=== PATIENT | male | born 1980 | race Caucasian/White ===

== ENCOUNTER 2018-04-09 13:56 | Inpatient (IN) | payer OTHER ==
[2018-04-09] MEDS: SOD CHLORIDE 0.9% 2,000 ML IV (14:26)
[2018-04-09 14:30] LABS: ADD MAN DIFF? NO
[2018-04-09 14:41] LABS: WHITE BLOOD COUNT 13.5 10^3/ul (4.8-10.8)
[2018-04-09 14:41] LABS: BASOPHILS % 0.3 % (0.0-2.0); EOSINOPHILS % 0.1 % (0.0-7.0); HEMATOCRIT 23.6 % (42.0-52.0); HEMOGLOBIN 7.2 g/dl (14.0-18.0); LYMPHOCYTES # 1.5 10^3/ul (0.8-2.9); LYMPHOCYTES % 11.4 % (15.0-51.0); MEAN CORPUSCULAR HEMOGLOBIN 29.4 pg (29.0-33.0); MEAN CORPUSCULAR HGB CONC 30.5 g/dl (32.0-37.0); MEAN CORPUSCULAR VOLUME 96.3 fl (82.0-101.0); MEAN PLATELET VOLUME 10.1 fl (7.4-10.4); MONOCYTE # 0.6 10^3/ul (0.3-0.9); MONOCYTES % 4.3 % (0.0-11.0); NEUTROPHIL # 11.2 10^3/ul (1.6-7.5); NEUTROPHILS % 83.4 % (39.0-77.0); PLATELET COUNT 419 10^3/UL (140-415); RED BLOOD COUNT 2.45 10^6/ul (4.70-6.10); RED CELL DISTRIBUTION WIDTH 14.6 % (11.5-14.5)
[2018-04-09 14:47] LABS: ADD UMIC YES; UR AMORPHOUS CRYSTAL FEW /HPF (NONE SEEN); UR ASCORBIC ACID NEGATIVE (NEGATIVE); UR BACTERIA FEW /HPF (NONE SEEN); UR BILIRUBIN (Dip) NEGATIVE (NEGATIVE); UR BLOOD (Dip) 2+ mg/dL (NEGATIVE); UR CLARITY SLIGHTLY CLOUDY (CLEAR); UR COLOR YELLOW (YELLOW); UR GLUCOSE (Dip) 3+ mg/dL (NEGATIVE); UR KETONES (Dip) 1+ mg/dL (NEGATIVE); UR LEUKOCYTE ESTERASE (Dip) NEGATIVE Leu/ul (NEGATIVE); UR NITRITE (Dip) NEGATIVE (NEGATIVE); UR RBC 0 /HPF (0-5); UR SPECIFIC GRAVITY (Dip) 1.015 (1.003-1.030); UR TOTAL PROTEIN (Dip) NEGATIVE (NEGATIVE); UR UROBILINOGEN (Dip) NEGATIVE (NEGATIVE); UR WBC 1 /HPF (0-5)
[2018-04-09] MEDS: CEFEPIME 1GM/50 ML (PMX) 50 ML IVPB (14:58)
[2018-04-09 14:59] LABS: ALANINE AMINOTRANSFERASE 40 IU/L (13-69); ALBUMIN 2.7 g/dl (3.3-4.9); ALBUMIN/GLOBULIN RATIO 1.22; ALKALINE PHOSPHATASE 130 IU/L (42-121); ANION GAP 46 (8-16); ASPARTATE AMINO TRANSFERASE 24 IU/L (15-46); BLOOD UREA NITROGEN 80 mg/dl (7-20); CALCIUM 6.3 mg/dl (8.4-10.2); CHLORIDE 69 mmol/L (97-110); CREATININE 4.92 mg/dl (0.61-1.24); MAGNESIUM 2.7 mg/dl (1.7-2.5); TOTAL PROTEIN 4.9 g/dl (6.1-8.1)
[2018-04-09 15:00] LABS: MODE MASK - NRB; MetHgb Venous 0.4 %; Sample Type Blood venous; Site VENOUS LINE; Venous COHb 0.3 %; Venous Fraction OxyHgb 89.3 %; Venous Oxygen Sat 89.9 mmHG (55.0-75.0); Venous Total Hemglobin 7.6 g/dl
[2018-04-09 15:01] LABS: PARTIAL THROMBOPLASTIN TIME 29.5 Sec (25.0-35.0); PROTIME 15.4 Sec (11.9-14.9); PT RATIO 1.2
[2018-04-09] MEDS ORDERED: ONDANSETRON 4 MG INJ (15:04)
[2018-04-09] MEDS ORDERED: SODIUM CHLORIDE 23.4% 77 MEQ in DEXTROSE 10% 1,000 ML IV (15:05)
[2018-04-09] MEDS ORDERED: POTASSIUM CHLORIDE 40 MEQ in SOD CHLORIDE 0.9% 1,000 ML IV (15:05)
[2018-04-09] MEDS ORDERED: SOD CHLORIDE 0.9% 1,000 ML IV (15:05)
[2018-04-09] MEDS ORDERED: SODIUM CHLORIDE 23.4% 77 MEQ, POTASSIUM CHLORIDE 40 MEQ in DEXTROSE 10% 1,000 ML IV (15:05)
[2018-04-09 15:09] LABS: AMPHETAMINE/METHAMPHETAMINE Negative (NEGATIVE); BARBITURATES Negative (NEGATIVE); BENZODIAZEPINES Negative (NEGATIVE); CANNABINOIDS Negative (NEGATIVE); COCAINE Negative (NEGATIVE); OPIATES Negative (NEGATIVE)
[2018-04-09 15:11] LABS: TROPONIN-I 0.089 ng/ml (0.000-0.120)
[2018-04-09 15:12] LABS: ETHANOL < 10.0 mg/dl
[2018-04-09 15:14] LABS: POTASSIUM 6.4 mmol/L (3.5-5.1)
[2018-04-09 15:15] LABS: CARBON DIOXIDE 5 mmol/L (21-31); SODIUM 114 mmol/L (135-144)
[2018-04-09] MEDS: ONDANSETRON 4 MG INJ IV ×2 (15:16→17:32)
[2018-04-09 15:19] LABS: PHOSPHORUS 18.1 mg/dl (2.5-4.9)
[2018-04-09] MEDS ORDERED: DEXTROSE 50% 50 ML SYRINGE IV ×2 (15:30)
[2018-04-09 15:31] LABS: GLUCOSE 1717 mg/dl (70-220)
[2018-04-09] MEDS: LACTATED RINGER'S 590 ML IV (15:36)
[2018-04-09] MEDS: INSULIN REGULAR, HUMAN 100 UNIT in SOD CHLORIDE 0.9% 100 ML IV (15:36)
[2018-04-09] MEDS: SOD CHLORIDE 0.9% 250 ML IV (15:43)
[2018-04-09] MEDS: CA CHLORIDE 10% 10 ML SYRINGE IV (15:45)
[2018-04-09] MEDS: NA BICARBONATE 8.4% 50 ML SYG IV (15:45)
[2018-04-09 15:46] LABS: OCCULT BLOOD STOOL POSITIVE (NEGATIVE)
[2018-04-09] MEDS: NORepinephrine 8MG/250 ML (PMX 250 ML IV (15:55)
[2018-04-09 15:57] LABS: AADO2 Arterial 526.3 mmHg (7.0-24.0); Allen Test ACCEPTAB; Arterial Base Excess -26.5 mmol/L (-3.0-3); Arterial Blood Gas Oxygen Sat 97.8 mmHG (95.0-98.0); Arterial COHb 0.3 % (0.0-3.0); Arterial Fraction of Oxyhgb 97.2 % (93.0-99.0); Arterial HCO3 5.1 mmol/L (22.0-26.0); Arterial MetHb 0.3 % (0.0-1.5); Arterial Total Hemglobin 7.5 g/dl (12.0-18.0); Arterial pCO2 29.2 mmhg (35-45); MODE NRB; Site Right Radial
[2018-04-09] MEDS: VANCOMYCIN 1 GM (PMX) 250 ML IVPB (15:58)
[2018-04-09] MEDS ORDERED: ONDANSETRON 4 MG INJ IV (16:00)
[2018-04-09] MEDS ORDERED: ACETAMINOPHEN 325 MG TAB PO ×2 (16:00→16:30)
[2018-04-09] MEDS: ALBUTEROL 0.5% (NEB) 2.5 MG/0.5 ML AMP INH (16:44)
[2018-04-09 16:57] LABS: LACTIC ACID 1.9 mmol/L (0.5-2.0)
[2018-04-09] MEDS: SODIUM BICARBONATE (IV ADD) 100 MEQ in DEXTROSE 5% 1,000 ML IV (17:00)
[2018-04-09] MEDS ORDERED: VANCOMYCIN IV PER PHARMACY XX (17:00)
[2018-04-09 17:03] LABS: ANION GAP 36 (8-16); BLOOD UREA NITROGEN 80 mg/dl (7-20); CALCIUM 7.1 mg/dl (8.4-10.2); CHLORIDE 84 mmol/L (97-110); CREATININE 4.17 mg/dl (0.61-1.24); MAGNESIUM 2.3 mg/dl (1.7-2.5); POTASSIUM 4.9 mmol/L (3.5-5.1); SODIUM 123 mmol/L (135-144)
[2018-04-09 17:27] LABS: MODE NRB; MetHgb Venous 0.3 %; Sample Type Blood venous; Site VENOUS LINE; Venous COHb 0.3 %; Venous Oxygen Sat 77.5 mmHG (55.0-75.0); Venous Total Hemglobin 10.1 g/dl
[2018-04-09 17:28] LABS: CARBON DIOXIDE 8 mmol/L (21-31); GLUCOSE 1386 mg/dl (70-220); PHOSPHORUS 14.4 mg/dl (2.5-4.9)
[2018-04-09] MEDS: METOCLOPRAMIDE 10 MG INJ IV (17:32)
[2018-04-09] MEDS: SOD CHLORIDE 0.45% 1,000 ML IV (18:00)
[2018-04-09] MEDS: POTASSIUM CHLORIDE 30 MEQ in SOD CHLORIDE 0.9% 1,000 ML IV ×2 (18:12→21:42)
[2018-04-09 18:58] LABS: HEMOGLOBIN A1C > 14.0 % (0-5.9)
[2018-04-09 19:23] LABS: ANION GAP 33 (8-16); BLOOD UREA NITROGEN 80 mg/dl (7-20); CALCIUM 6.9 mg/dl (8.4-10.2); CHLORIDE 88 mmol/L (97-110); CREATINE KINASE 1541 IU/L (23-200); CREATININE 3.95 mg/dl (0.61-1.24); MAGNESIUM 2.1 mg/dl (1.7-2.5); PHOSPHORUS 11.9 mg/dl (2.5-4.9); POTASSIUM 3.7 mmol/L (3.5-5.1); SODIUM 126 mmol/L (135-144)
[2018-04-09 19:33] LABS: CK INDEX 1.5
[2018-04-09 19:51] LABS: MODE MASK - NRB; MetHgb Venous 0.4 %; Sample Type Blood venous; Site VENOUS LINE; Venous COHb 0.3 %; Venous Fraction OxyHgb 58.1 %; Venous Oxygen Sat 58.5 mmHG (55.0-75.0); Venous Total Hemglobin 10.4 g/dl
[2018-04-09] MEDS ORDERED: CEFTRIAXONE 1 GM/50 ML (PMX) 50 ML IVPB (20:00)
[2018-04-09 20:15] LABS: LACTIC ACID 3.1 mmol/L (0.5-2.0)
[2018-04-09 20:15] LABS: CARBON DIOXIDE 9 mmol/L (21-31)
[2018-04-09 20:16] LABS: GLUCOSE 1242 mg/dl (70-220)
[2018-04-09 20:17] LABS: TROPONIN-I 0.145 ng/ml (0.000-0.120)
[2018-04-09] MEDS ORDERED: AZITHROMYCIN 500MG/NS (PMX) 250 ML IV (21:00)
[2018-04-09 21:04] LABS: AADO2 Arterial 619.7 mmHg (7.0-24.0); Allen Test ACCEPTAB; Arterial Base Excess -19.7 mmol/L (-3.0-3); Arterial Blood Gas Oxygen Sat 87.6 mmHG (95.0-98.0); Arterial COHb 0.3 % (0.0-3.0); Arterial Fraction of Oxyhgb 87.2 % (93.0-99.0); Arterial MetHb 0.2 % (0.0-1.5); Arterial Total Hemglobin 10.4 g/dl (12.0-18.0); Arterial pCO2 31.5 mmhg (35-45); MODE MASK - NRB; Site Right Brachial
[2018-04-09 21:21] LABS: ALANINE AMINOTRANSFERASE 42 IU/L (13-69); ALBUMIN 2.4 g/dl (3.3-4.9); ALKALINE PHOSPHATASE 133 IU/L (42-121); ANION GAP 29 (8-16); ASPARTATE AMINO TRANSFERASE 40 IU/L (15-46); BILIRUBIN,INDIRECT 0.3 mg/dl (0-1.1); BILIRUBIN,TOTAL 0.3 mg/dl (0.2-1.3); BLOOD UREA NITROGEN 74 mg/dl (7-20); CALCIUM 6.8 mg/dl (8.4-10.2); CARBON DIOXIDE 11 mmol/L (21-31); CHLORIDE 91 mmol/L (97-110); CREATININE 4.01 mg/dl (0.61-1.24); POTASSIUM 3.8 mmol/L (3.5-5.1); SODIUM 127 mmol/L (135-144); TOTAL PROTEIN 4.8 g/dl (6.1-8.1)
[2018-04-09 21:33] LABS: GLUCOSE 1118 mg/dl (70-220)
[2018-04-09] MEDS: PANTOPRAZOLE 40 MG INJ IV (21:39)
[2018-04-09] MEDS: LORAZEPAM 2 MG INJ IV (21:39)
[2018-04-09 23:21] LABS: AADO2 Arterial 590.6 mmHg (7.0-24.0); Allen Test ACCEPTAB; Arterial Base Excess -16.8 mmol/L (-3.0-3); Arterial Blood Gas Oxygen Sat 95.2 mmHG (95.0-98.0); Arterial COHb 0.3 % (0.0-3.0); Arterial Fraction of Oxyhgb 94.6 % (93.0-99.0); Arterial HCO3 10.9 mmol/L (22.0-26.0); Arterial MetHb 0.3 % (0.0-1.5); Arterial Total Hemglobin 10.4 g/dl (12.0-18.0); Arterial pCO2 32.8 mmhg (35-45); MODE MASK - NRB; Site Right Radial
[2018-04-09 23:24] LABS: MODE MASK - NRB; MetHgb Venous 0.5 %; Sample Type Blood venous; Site VENOUS LINE; Venous COHb 0.3 %; Venous Fraction OxyHgb 63.1 %; Venous Oxygen Sat 63.6 mmHG (55.0-75.0); Venous Total Hemglobin 9.9 g/dl
[2018-04-09 23:38] LABS: ANION GAP 26 (8-16); BLOOD UREA NITROGEN 75 mg/dl (7-20); CALCIUM 6.6 mg/dl (8.4-10.2); CARBON DIOXIDE 13 mmol/L (21-31); CHLORIDE 96 mmol/L (97-110); CREATININE 3.78 mg/dl (0.61-1.24); MAGNESIUM 1.9 mg/dl (1.7-2.5); PHOSPHORUS 8.9 mg/dl (2.5-4.9); POTASSIUM 4.5 mmol/L (3.5-5.1); SODIUM 130 mmol/L (135-144)
[2018-04-10 00:03] LABS: GLUCOSE 905 mg/dl (70-220)
[2018-04-10] MEDS ORDERED: LORAZEPAM 2 MG INJ IV (00:30)
[2018-04-10] MEDS: ONDANSETRON 4 MG INJ IV (00:40)
[2018-04-10] MEDS: SOD CHLORIDE 0.45% 1,000 ML IV ×2 (00:40→07:20)
[2018-04-10] MEDS: PROPOFOL 100 ML IV ×3 (01:38→15:55)
[2018-04-10] MEDS: POTASSIUM CHLORIDE 30 MEQ in SOD CHLORIDE 0.9% 1,000 ML IV ×3 (02:01→10:27)
[2018-04-10 02:45] LABS: GLUCOSE 669 mg/dl (70-220)
[2018-04-10 02:50] LABS: Blood Gas Low PEEP Setting 0 cmH2O; MODE VENT - AC; MetHgb Venous 0.5 %; Sample Type Blood venous; Site VENOUS LINE; Venous COHb 0.3 %; Venous Fraction OxyHgb 83.6 %; Venous Oxygen Sat 84.3 mmHG (55.0-75.0); Venous Total Hemglobin 10.6 g/dl
[2018-04-10 02:59] LABS: AADO2 Arterial 399.7 mmHg (7.0-24.0); Allen Test ACCEPTAB; Arterial Base Excess -13.6 mmol/L (-3.0-3); Arterial COHb 0.3 % (0.0-3.0); Arterial Fraction of Oxyhgb 98.2 % (93.0-99.0); Arterial HCO3 16.7 mmol/L (22.0-26.0); Arterial MetHb 0.5 % (0.0-1.5); Arterial Total Hemglobin 10.9 g/dl (12.0-18.0); Arterial pCO2 61.2 mmhg (35-45); MODE VENT - AC; Site Right Radial
[2018-04-10] MEDS: DEXTROSE 10% 1,000 ML IV ×2 (03:00→10:30)
[2018-04-10 03:07] LABS: ABNORMAL IP MESSAGE 1; HEMATOCRIT 27.2 % (42.0-52.0); HEMOGLOBIN 9.5 g/dl (14.0-18.0); MEAN CORPUSCULAR HEMOGLOBIN 28.2 pg (29.0-33.0); MEAN CORPUSCULAR HGB CONC 34.9 g/dl (32.0-37.0); MEAN CORPUSCULAR VOLUME 80.7 fl (82.0-101.0); MEAN PLATELET VOLUME 9.2 fl (7.4-10.4); NUCLEATED RED BLOOD CELLS% 2.1 /100WBC (0.0-0.0); PLATELET COUNT 331 10^3/UL (140-415); POSITIVE DIFF @See below; RED BLOOD COUNT 3.37 10^6/ul (4.70-6.10); RED CELL DISTRIBUTION WIDTH 13.3 % (11.5-14.5)
[2018-04-10 03:07] LABS: WHITE BLOOD COUNT 1.9 10^3/ul (4.8-10.8)
[2018-04-10 03:17] LABS: ANION GAP 19 (8-16); BLOOD UREA NITROGEN 76 mg/dl (7-20); CALCIUM 6.7 mg/dl (8.4-10.2); CARBON DIOXIDE 17 mmol/L (21-31); CHLORIDE 103 mmol/L (97-110); CREATININE 3.76 mg/dl (0.61-1.24); MAGNESIUM 1.9 mg/dl (1.7-2.5); PHOSPHORUS 7.3 mg/dl (2.5-4.9); POTASSIUM 3.5 mmol/L (3.5-5.1); SODIUM 135 mmol/L (135-144)
[2018-04-10] MEDS: SODIUM CHLORIDE 23.4% 77 MEQ, POTASSIUM CHLORIDE 30 MEQ in DEXTROSE 10% 1,000 ML IV (03:24)
[2018-04-10] MEDS: LORAZEPAM 2 MG INJ IV (03:42)
[2018-04-10 03:58] LABS: ADD MAN DIFF? YES
[2018-04-10] MEDS: FENTAnyl (DRIP) 1000 mcg/100mL 100 ML IV ×2 (04:04→15:52)
[2018-04-10 04:07] LABS: GLUCOSE 622 mg/dl (70-220)
[2018-04-10 04:46] LABS: ANISOCYTOSIS 1+ (0-0); BAND NEUTROPHILS #M 0.3 10^3/ul (0.0-0.6); BAND NEUTROPHILS % (M) 21 % (0-4); ERYTHROBLAST% (NRBC) (M) 6 % (0-0); GIANT THROMBO% (M) 1 % (0-0); LYMPHOCYTES #M 1.1 10^3/ul (0.8-2.9); LYMPHOCYTES % (M) 60 % (15-51); METAMYELOCYTES %M 4 % (0-0); PLATELET ESTIMATE NORMAL; POIKILOCYTOSIS 1+ (0-0); REACTIVE LYMPHOCYTES% (M) 3 % (0-0); SEG NEUT #M 0.2 10^3/ul (1.6-7.5); SEGMENTED NEUTROPHILS (M) % 12 % (39-77); SMUDGE%M 19 % (0-0)
[2018-04-10] MEDS ORDERED: MIDAZOLAM (DRIP) 50 mg/50 mL 50 ML IV (05:00)
[2018-04-10 05:37] LABS: CREATINE KINASE 2050 IU/L (23-200)
[2018-04-10] MEDS: PANTOPRAZOLE 40 MG INJ IV ×2 (05:40→18:32)
[2018-04-10 05:41] LABS: CK INDEX 1.4
[2018-04-10 05:48] LABS: TROPONIN-I 0.247 ng/ml (0.000-0.120)
[2018-04-10] MEDS: SODIUM BICARBONATE (IV ADD) 100 MEQ in DEXTROSE 5% 1,000 ML IV (06:04)
[2018-04-10] MEDS ORDERED: VECURONIUM 10 MG VIAL (07:00)
[2018-04-10] MEDS ORDERED: ETOMIDATE 20 MG INJ (07:00)
[2018-04-10] MEDS: INSULIN REGULAR, HUMAN 100 UNIT in SOD CHLORIDE 0.9% 100 ML IV (07:01)
[2018-04-10 08:34] LABS: ANION GAP 15 (8-16); BLOOD UREA NITROGEN 72 mg/dl (7-20); CALCIUM 6.7 mg/dl (8.4-10.2); CARBON DIOXIDE 18 mmol/L (21-31); CHLORIDE 107 mmol/L (97-110); CREATININE 3.46 mg/dl (0.61-1.24); GLUCOSE 332 mg/dl (70-220); MAGNESIUM 1.7 mg/dl (1.7-2.5); PHOSPHORUS 4.3 mg/dl (2.5-4.9); POTASSIUM 3.4 mmol/L (3.5-5.1); SODIUM 137 mmol/L (135-144)
[2018-04-10 09:01] LABS: MODE VENT - AC; MetHgb Venous 0.5 %; Sample Type Blood venous; Site VENOUS LINE; Venous COHb 0.1 %; Venous Fraction OxyHgb 76.4 %; Venous Oxygen Sat 76.9 mmHG (55.0-75.0); Venous Total Hemglobin 6.8 g/dl
[2018-04-10 09:33] LABS: AADO2 Arterial 107.1 mmHg (7.0-24.0); Allen Test ACCEPTAB; Arterial Base Excess -7.6 mmol/L (-3.0-3); Arterial Blood Gas Oxygen Sat 89.6 mmHG (95.0-98.0); Arterial COHb 0.3 % (0.0-3.0); Arterial Fraction of Oxyhgb 89.1 % (93.0-99.0); Arterial HCO3 18.5 mmol/L (22.0-26.0); Arterial MetHb 0.3 % (0.0-1.5); Arterial pCO2 40.4 mmhg (35-45); MODE VENT - AC; Site Right Radial
[2018-04-10 11:00] LABS: LACTIC ACID 3.6 mmol/L (0.5-2.0)
[2018-04-10 11:45] LABS: ANION GAP 12 (8-16); BLOOD UREA NITROGEN 68 mg/dl (7-20); CALCIUM 6.5 mg/dl (8.4-10.2); CARBON DIOXIDE 19 mmol/L (21-31); CHLORIDE 110 mmol/L (97-110); CREATININE 3.23 mg/dl (0.61-1.24); GLUCOSE 206 mg/dl (70-220); MAGNESIUM 1.5 mg/dl (1.7-2.5); PHOSPHORUS 4.1 mg/dl (2.5-4.9); POTASSIUM 3.7 mmol/L (3.5-5.1); SODIUM 137 mmol/L (135-144)
[2018-04-10 12:04] LABS: HIV 1&2 ANTIBODY NEGATIVE (NEGATIVE)
[2018-04-10] MEDS: ENOXAPARIN 30 MG/0.3 ML SYG SC (13:05)
[2018-04-10] MEDS: MAGNESIUM SULFATE 2 GM/50 ML 50 ML IVPB (13:30)
[2018-04-10] MEDS: ACCU-CHEK XX ×10 (15:27→23:35)
[2018-04-10] MEDS: SOD CHLORIDE 0.9% 1,000 ML IV (15:31)
[2018-04-10] MEDS: CEFEPIME 1GM/50 ML (PMX) 50 ML IVPB (15:31)
[2018-04-10] MEDS: INSULIN HUMAN REGULAR 100 UNIT in SOD CHLORIDE 0.9% 99 ML IV (15:46)
[2018-04-10] MEDS: DEXTROSE 5%-0.9% NACL 1,000 ML IV (16:27)
[2018-04-10 18:47] LABS: ANION GAP 12 (8-16); BLOOD UREA NITROGEN 65 mg/dl (7-20); CALCIUM 6.6 mg/dl (8.4-10.2); CARBON DIOXIDE 21 mmol/L (21-31); CHLORIDE 110 mmol/L (97-110); CREATININE 2.86 mg/dl (0.61-1.24); GLUCOSE 112 mg/dl (70-220); POTASSIUM 4.1 mmol/L (3.5-5.1); SODIUM 139 mmol/L (135-144)
[2018-04-11] MEDS: ACCU-CHEK XX ×23 (00:39→22:30)
[2018-04-11] MEDS: DEXTROSE 5%-0.9% NACL 1,000 ML IV ×2 (02:46→15:11)
[2018-04-11] MEDS: PROPOFOL 100 ML IV ×2 (02:46→15:06)
[2018-04-11] MEDS: PANTOPRAZOLE (EC) 40 MG TAB PO (02:47)
[2018-04-11 04:56] LABS: AADO2 Arterial 194.6 mmHg (7.0-24.0); Allen Test ACCEPTAB; Arterial Blood Gas Oxygen Sat 97.8 mmHG (95.0-98.0); Arterial COHb 0.2 % (0.0-3.0); Arterial Fraction of Oxyhgb 97.1 % (93.0-99.0); Arterial HCO3 19.8 mmol/L (22.0-26.0); Arterial MetHb 0.5 % (0.0-1.5); Arterial Total Hemglobin 9.4 g/dl (12.0-18.0); Arterial pCO2 35.5 mmhg (35-45); MODE VENT - AC; Site Right Radial
[2018-04-11 05:36] LABS: WHITE BLOOD COUNT 12.5 10^3/ul (4.8-10.8)
[2018-04-11 05:36] LABS: ABNORMAL IP MESSAGE 1; HEMATOCRIT 21.1 % (42.0-52.0); HEMOGLOBIN 7.6 g/dl (14.0-18.0); MEAN CORPUSCULAR HEMOGLOBIN 28.8 pg (29.0-33.0); MEAN CORPUSCULAR VOLUME 79.9 fl (82.0-101.0); MEAN PLATELET VOLUME 9.7 fl (7.4-10.4); NUCLEATED RED BLOOD CELLS% 0.2 /100WBC (0.0-0.0); PLATELET COUNT 209 10^3/UL (140-415); POSITIVE DIFF @See below; RED BLOOD COUNT 2.64 10^6/ul (4.70-6.10); RED CELL DISTRIBUTION WIDTH 14.2 % (11.5-14.5)
[2018-04-11 06:03] LABS: VANCOMYCIN,RANDOM 8.6 ug/ml
[2018-04-11 06:09] LABS: ALBUMIN 2.1 g/dl (3.3-4.9); ANION GAP 10 (8-16); BLOOD UREA NITROGEN 59 mg/dl (7-20); CALCIUM 7.1 mg/dl (8.4-10.2); CARBON DIOXIDE 21 mmol/L (21-31); CHLORIDE 115 mmol/L (97-110); GLUCOSE 123 mg/dl (70-220); MAGNESIUM 2.3 mg/dl (1.7-2.5); PHOSPHORUS 3.8 mg/dl (2.5-4.9); SODIUM 142 mmol/L (135-144)
[2018-04-11 06:12] LABS: ADD MAN DIFF? YES
[2018-04-11 06:27] LABS: Blood Gas Low PEEP Setting 0 cmH2O
[2018-04-11] MEDS: VANCOMYCIN 1.25 GM in SOD CHLORIDE 0.9% 250 ML IVPB (09:24)
[2018-04-11] MEDS: ENOXAPARIN 30 MG/0.3 ML SYG SC (09:29)
[2018-04-11 10:23] LABS: ANISOCYTOSIS 1+ (0-0); BAND NEUTROPHILS #M 8.5 10^3/ul (0.0-0.6); BAND NEUTROPHILS % (M) 68 % (0-4); BURR CELLS 1+ (0-0); EOSINOPHILS % (M) 2 % (0-7); ERYTHROBLAST% (NRBC) (M) 2 % (0-0); GIANT THROMBO% (M) 1 % (0-0); LYMPHOCYTES #M 0.6 10^3/ul (0.8-2.9); LYMPHOCYTES % (M) 5 % (15-51); METAMYELOCYTES #M 1.2 10^3/ul (0.0-0.0); METAMYELOCYTES %M 10 % (0-0); MONOCYTE #M 0.1 10^3/ul (0.3-0.9); MONOCYTES % (M) 1 % (0-11); MYELOCYTES #M 0.2 10^3/ul (0.0-0.0); MYELOCYTES % (M) 2 % (0-0); PLATELET ESTIMATE NORMAL; POIKILOCYTOSIS 1+ (0-0); SEG NEUT #M 2.6 10^3/ul (1.6-7.5); SEGMENTED NEUTROPHILS (M) % 12 % (39-77); SMUDGE%M 8 % (0-0); TARGET CELLS 1+ (0-0)
[2018-04-11] MEDS: CEFEPIME 1GM/50 ML (PMX) 50 ML IVPB (15:09)
[2018-04-12] MEDS: ACCU-CHEK XX ×19 (00:08→21:16)
[2018-04-12] MEDS: DEXTROSE 5%-0.9% NACL 1,000 ML IV (04:55)
[2018-04-12] MEDS: PROPOFOL 100 ML IV ×3 (04:56→22:46)
[2018-04-12 05:22] LABS: WHITE BLOOD COUNT 5.8 10^3/ul (4.8-10.8)
[2018-04-12 05:22] LABS: ABNORMAL IP MESSAGE 1; HEMATOCRIT 20.8 % (42.0-52.0); HEMOGLOBIN 7.1 g/dl (14.0-18.0); MEAN CORPUSCULAR HEMOGLOBIN 28.2 pg (29.0-33.0); MEAN CORPUSCULAR HGB CONC 34.1 g/dl (32.0-37.0); MEAN CORPUSCULAR VOLUME 82.5 fl (82.0-101.0); PLATELET COUNT 153 10^3/UL (140-415); POSITIVE DIFF @See below; RED BLOOD COUNT 2.52 10^6/ul (4.70-6.10); RED CELL DISTRIBUTION WIDTH 15.2 % (11.5-14.5)
[2018-04-12 05:28] LABS: ADD MAN DIFF? YES
[2018-04-12 06:00] LABS: ALBUMIN 2.2 g/dl (3.3-4.9); ANION GAP 6 (8-16); BLOOD UREA NITROGEN 46 mg/dl (7-20); CALCIUM 7.8 mg/dl (8.4-10.2); CARBON DIOXIDE 23 mmol/L (21-31); CHLORIDE 122 mmol/L (97-110); CREATININE 1.87 mg/dl (0.61-1.24); GLUCOSE 118 mg/dl (70-220); MAGNESIUM 2.2 mg/dl (1.7-2.5); PHOSPHORUS 3.6 mg/dl (2.5-4.9); POTASSIUM 3.3 mmol/L (3.5-5.1); SODIUM 148 mmol/L (135-144)
[2018-04-12] MEDS: PANTOPRAZOLE 40 MG INJ IV (06:16)
[2018-04-12 08:23] LABS: IMMEDIATE SPIN CROSSMATCH 1 2
[2018-04-12 09:07] LABS: BAND NEUTROPHILS #M 0.9 10^3/ul (0.0-0.6); BAND NEUTROPHILS % (M) 16 % (0-4); BASOPHIL #M 0.1 10^3/ul (0.0-0.0); BASOPHILS % (M) 2 % (0-2); EOSINOPHILS % (M) 7 % (0-7); GIANT THROMBO% (M) 1 % (0-0); LYMPHOCYTES #M 1.3 10^3/ul (0.8-2.9); LYMPHOCYTES % (M) 24 % (15-51); METAMYELOCYTES %M 1 % (0-0); MONOCYTES % (M) 1 % (0-11); MYELOCYTES #M 0.1 10^3/ul (0.0-0.0); MYELOCYTES % (M) 2 % (0-0); PLATELET ESTIMATE NORMAL; POLYCHROMASIA 1+ (0-0); SEG NEUT #M 2.8 10^3/ul (1.6-7.5); SEGMENTED NEUTROPHILS (M) % 47 % (39-77); SMUDGE%M 22 % (0-0)
[2018-04-12] MEDS: POTASSIUM CHLORIDE 100 ML IVPB (09:18)
[2018-04-12] MEDS: SOD CHLORIDE 0.45% 1,000 ML IV ×2 (09:18→18:38)
[2018-04-12] MEDS: FENTAnyl (DRIP) 1000 mcg/100mL 100 ML IV (09:23)
[2018-04-12] MEDS: VANCOMYCIN 1 GM 250 ML IVPB (11:50)
[2018-04-12] MEDS: PIPER-TAZO 3.375 GM IV (PMX) 100 ML IVPB ×2 (12:58→18:35)
[2018-04-12] MEDS ORDERED: ROCURONIUM 50 MG INJ (13:20)
[2018-04-12] MEDS: DOXYCYCLINE 100 MG in SOD CHLORIDE 0.9% 250 ML IVPB ×2 (14:16→23:24)
[2018-04-12] MEDS: INSULIN GLARGINE [LANTus] (100 UNITS/ML) SYG SC (14:30)
[2018-04-12] MEDS ORDERED: GLUCOSE GEL 15 GRAM TUBE BUCCAL (14:30)
[2018-04-12] MEDS ORDERED: GLUCAGON 1 MG INJ IM (14:30)
[2018-04-12] MEDS ORDERED: GLUCOSE GEL 15 GRAM TUBE PO ×2 (14:30)
[2018-04-12] MEDS: INSULIN ASPART [NOVOLOG] 3 ML PEN SC ×2 (17:31→21:00)
[2018-04-12] MEDS: DEXTROSE 50% 50 ML SYRINGE IV (21:23)
[2018-04-12] MEDS: MUPIROCIN 2% 22 GM OINT TOP (21:41)
[2018-04-12 22:37] LABS: WHITE BLOOD COUNT 2.2 10^3/ul (4.8-10.8)
[2018-04-12 22:37] LABS: ABNORMAL IP MESSAGE 1; HEMATOCRIT 25.5 % (42.0-52.0); HEMOGLOBIN 8.5 g/dl (14.0-18.0); MEAN CORPUSCULAR HEMOGLOBIN 28.1 pg (29.0-33.0); MEAN CORPUSCULAR HGB CONC 33.3 g/dl (32.0-37.0); MEAN CORPUSCULAR VOLUME 84.4 fl (82.0-101.0); MEAN PLATELET VOLUME 10.5 fl (7.4-10.4); POSITIVE DIFF @See below; RED BLOOD COUNT 3.02 10^6/ul (4.70-6.10); RED CELL DISTRIBUTION WIDTH 15.6 % (11.5-14.5)
[2018-04-12 22:44] LABS: ADD MAN DIFF? YES; PLATELET COUNT 98 10^3/UL (140-415)
[2018-04-12 22:52] LABS: GLUCOSE 96 mg/dl (70-220)
[2018-04-13 00:39] LABS: BAND NEUTROPHILS #M 0.3 10^3/ul (0.0-0.6); BAND NEUTROPHILS % (M) 18 % (0-4); BASOPHILS % (M) 1 % (0-2); EOSINOPHILS % (M) 4 % (0-7); ERYTHROBLAST% (NRBC) (M) 1 % (0-0); GIANT THROMBO% (M) 1 % (0-0); LYMPHOCYTES #M 1.1 10^3/ul (0.8-2.9); LYMPHOCYTES % (M) 52 % (15-51); MONOCYTES % (M) 1 % (0-11); PLATELET ESTIMATE DECREASED; SEG NEUT #M 0.5 10^3/ul (1.6-7.5); SEGMENTED NEUTROPHILS (M) % 24 % (39-77); SMUDGE%M 3 % (0-0)
[2018-04-13] MEDS: PIPER-TAZO 3.375 GM IV (PMX) 100 ML IVPB ×4 (00:43→18:00)
[2018-04-13] MEDS: INSULIN ASPART [NOVOLOG] 3 ML PEN SC ×6 (01:00→21:00)
[2018-04-13] MEDS: DEXTROSE 50% 50 ML SYRINGE IV ×5 (01:00→21:34)
[2018-04-13] MEDS: ACCU-CHEK XX ×3 (01:05→09:00)
[2018-04-13] MEDS: DEXTROSE 5%-0.45% NACL 1,000 ML IV (01:17)
[2018-04-13 01:59] LABS: GLUCOSE 140 mg/dl (70-220)
[2018-04-13] MEDS ORDERED: ACCU-CHEK XX (02:00)
[2018-04-13 05:05] LABS: ABNORMAL IP MESSAGE 1; HEMATOCRIT 23.9 % (42.0-52.0); MEAN CORPUSCULAR HEMOGLOBIN 28.1 pg (29.0-33.0); MEAN CORPUSCULAR HGB CONC 33.5 g/dl (32.0-37.0); MEAN CORPUSCULAR VOLUME 83.9 fl (82.0-101.0); MEAN PLATELET VOLUME 10.2 fl (7.4-10.4); PLATELET COUNT 145 10^3/UL (140-415); POSITIVE DIFF @See below; RED BLOOD COUNT 2.85 10^6/ul (4.70-6.10); RED CELL DISTRIBUTION WIDTH 15.7 % (11.5-14.5)
[2018-04-13] MEDS: PANTOPRAZOLE 40 MG INJ IV (05:06)
[2018-04-13 05:40] LABS: ADD MAN DIFF? YES
[2018-04-13 06:04] LABS: ALBUMIN 1.9 g/dl (3.3-4.9); ANION GAP 9 (8-16); BLOOD UREA NITROGEN 33 mg/dl (7-20); CALCIUM 7.6 mg/dl (8.4-10.2); CARBON DIOXIDE 23 mmol/L (21-31); CHLORIDE 120 mmol/L (97-110); CREATININE 1.79 mg/dl (0.61-1.24); GLUCOSE 88 mg/dl (70-220); MAGNESIUM 1.7 mg/dl (1.7-2.5); PHOSPHORUS 3.9 mg/dl (2.5-4.9); POTASSIUM 3.6 mmol/L (3.5-5.1); SODIUM 148 mmol/L (135-144)
[2018-04-13] MEDS: PROPOFOL 100 ML IV ×3 (06:06→23:06)
[2018-04-13] MEDS: INSULIN GLARGINE [LANTus] (100 UNITS/ML) SYG SC (08:00)
[2018-04-13 08:01] LABS: BAND NEUTROPHILS #M 0.4 10^3/ul (0.0-0.6); BAND NEUTROPHILS % (M) 15 % (0-4); EOSINOPHILS % (M) 6 % (0-7); ERYTHROBLAST% (NRBC) (M) 1 % (0-0); LYMPHOCYTES #M 1.7 10^3/ul (0.8-2.9); LYMPHOCYTES % (M) 59 % (15-51); MONOCYTE #M 0.2 10^3/ul (0.3-0.9); MONOCYTES % (M) 7 % (0-11); MYELOCYTES % (M) 1 % (0-0); PLATELET ESTIMATE NORMAL; REACTIVE LYMPHOCYTES #M 0.1 10^3/ul (0.0-0.0); REACTIVE LYMPHOCYTES% (M) 6 % (0-0); SEG NEUT #M 0.2 10^3/ul (1.6-7.5); SEGMENTED NEUTROPHILS (M) % 6 % (39-77); SMUDGE%M 22 % (0-0); TOXIC GRANULATION 1+ (0-0)
[2018-04-13] MEDS: DEXTROSE 5% 1,000 ML IV ×3 (08:45→22:08)
[2018-04-13] MEDS: SOD CHLORIDE 0.9% 1,000 ML IV ×2 (08:45→21:28)
[2018-04-13] MEDS: DOXYCYCLINE 100 MG in SOD CHLORIDE 0.9% 250 ML IVPB ×2 (10:33→20:27)
[2018-04-13] MEDS: MUPIROCIN 2% 22 GM OINT TOP ×2 (10:34→20:26)
[2018-04-13 10:47] LABS: GLUCOSE 103 mg/dl (70-220)
[2018-04-13] MEDS: FLUCONAZOLE 400 MG/NS (PMX) 200 ML IVPB (13:21)
[2018-04-13] MEDS: LIDOCAINE 1% (MPF) 5 ML VIAL SC (14:50)
[2018-04-13] MEDS: FENTAnyl (DRIP) 1000 mcg/100mL 100 ML IV (16:16)
[2018-04-13] MEDS: CASPOFUNGIN 70 MG in SOD CHLORIDE 0.9% 250 ML IVPB (17:30)
[2018-04-13] MEDS: DEXTROSE 10% 1,000 ML IV (23:29)
[2018-04-14] MEDS: PIPER-TAZO 3.375 GM IV (PMX) 100 ML IVPB ×4 (00:40→20:01)
[2018-04-14] MEDS: INSULIN ASPART [NOVOLOG] 3 ML PEN SC ×6 (00:50→21:48)
[2018-04-14] MEDS: PANTOPRAZOLE 40 MG INJ IV (05:16)
[2018-04-14 06:11] LABS: ALANINE AMINOTRANSFERASE 20 IU/L (13-69); ALKALINE PHOSPHATASE 143 IU/L (42-121); ANION GAP 8 (8-16); ASPARTATE AMINO TRANSFERASE 10 IU/L (15-46); BILIRUBIN,INDIRECT 0.2 mg/dl (0-1.1); BILIRUBIN,TOTAL 0.2 mg/dl (0.2-1.3); BLOOD UREA NITROGEN 20 mg/dl (7-20); CARBON DIOXIDE 22 mmol/L (21-31); CHLORIDE 114 mmol/L (97-110); GLUCOSE 99 mg/dl (70-220); MAGNESIUM 1.2 mg/dl (1.7-2.5); SODIUM 141 mmol/L (135-144); TOTAL PROTEIN 4.5 g/dl (6.1-8.1)
[2018-04-14] MEDS: PROPOFOL 100 ML IV ×2 (06:11→23:55)
[2018-04-14 06:15] LABS: POTASSIUM 2.5 mmol/L (3.5-5.1)
[2018-04-14 06:17] LABS: ADD MAN DIFF? NO
[2018-04-14 06:27] LABS: ABNORMAL IP MESSAGE 1; BASOPHILS % 0.5 % (0.0-2.0); EOSINOPHILS # 0.5 10^3/ul (0.0-0.5); EOSINOPHILS % 7.5 % (0.0-7.0); HEMATOCRIT 22.5 % (42.0-52.0); HEMOGLOBIN 7.3 g/dl (14.0-18.0); LYMPHOCYTES % 30.6 % (15.0-51.0); MEAN CORPUSCULAR HEMOGLOBIN 27.9 pg (29.0-33.0); MEAN CORPUSCULAR HGB CONC 32.4 g/dl (32.0-37.0); MEAN CORPUSCULAR VOLUME 85.9 fl (82.0-101.0); MEAN PLATELET VOLUME 10.5 fl (7.4-10.4); MONOCYTES % 15.7 % (0.0-11.0); NEUTROPHIL # 2.9 10^3/ul (1.6-7.5); NEUTROPHILS % 45.1 % (39.0-77.0); PLATELET COUNT 144 10^3/UL (140-415); POSITIVE DIFF @See below; RED BLOOD COUNT 2.62 10^6/ul (4.70-6.10); RED CELL DISTRIBUTION WIDTH 15.5 % (11.5-14.5)
[2018-04-14 06:27] LABS: WHITE BLOOD COUNT 6.4 10^3/ul (4.8-10.8)
[2018-04-14] MEDS: POTASSIUM CHLORIDE 50 ML IVPB ×3 (06:43→10:52)
[2018-04-14] MEDS: DOXYCYCLINE 100 MG in SOD CHLORIDE 0.9% 250 ML IVPB ×2 (08:40→21:40)
[2018-04-14] MEDS: MUPIROCIN 2% 22 GM OINT TOP ×2 (08:40→21:40)
[2018-04-14] MEDS: DEXTROSE 10% 1,000 ML IV (10:54)
[2018-04-14] MEDS: MAGNESIUM SULFATE 4 GM/100 ML 100 ML IVPB (11:03)
[2018-04-14] MEDS: METHYLPREDNISOLONE 40 MG INJ IV ×2 (12:40→18:49)
[2018-04-14] MEDS: FENTAnyl (DRIP) 1000 mcg/100mL 100 ML IV ×2 (12:40→23:54)
[2018-04-14 14:01] LABS: SODIUM,URINE RANDOM 52 mmol/L (30-90)
[2018-04-14 14:23] LABS: ANION GAP 8 (8-16); BLOOD UREA NITROGEN 16 mg/dl (7-20); CALCIUM 7.3 mg/dl (8.4-10.2); CARBON DIOXIDE 20 mmol/L (21-31); CHLORIDE 118 mmol/L (97-110); CREATININE 1.79 mg/dl (0.61-1.24); GLUCOSE 138 mg/dl (70-220); MAGNESIUM 2.8 mg/dl (1.7-2.5); PHOSPHORUS 4.4 mg/dl (2.5-4.9); POTASSIUM 3.2 mmol/L (3.5-5.1); SODIUM 143 mmol/L (135-144)
[2018-04-14] MEDS: POTASSIUM CHLORIDE 100 ML IVPB ×2 (17:03→18:44)
[2018-04-14] MEDS: EPOETIN 10000 UNITS/ML (NON ESRD/NON ONCOLOGY) SC (17:04)
[2018-04-14] MEDS: CASPOFUNGIN 50 MG in SOD CHLORIDE 0.9% 250 ML IVPB (18:44)
[2018-04-14] MEDS: DEXTROSE 5%-0.45% NACL 1,000 ML IV (20:01)
[2018-04-15] MEDS: METHYLPREDNISOLONE 40 MG INJ IV ×5 (00:47→23:23)
[2018-04-15] MEDS: PIPER-TAZO 3.375 GM IV (PMX) 100 ML IVPB ×5 (00:48→23:23)
[2018-04-15] MEDS: INSULIN ASPART [NOVOLOG] 3 ML PEN SC ×6 (00:55→21:03)
[2018-04-15] MEDS: PROPOFOL 100 ML IV (05:01)
[2018-04-15] MEDS: PANTOPRAZOLE 40 MG INJ IV (05:01)
[2018-04-15 05:29] LABS: WHITE BLOOD COUNT 4.2 10^3/ul (4.8-10.8)
[2018-04-15 05:29] LABS: HEMATOCRIT 27.6 % (42.0-52.0); HEMOGLOBIN 9.1 g/dl (14.0-18.0); MEAN CORPUSCULAR HEMOGLOBIN 28.4 pg (29.0-33.0); MEAN CORPUSCULAR VOLUME 86.3 fl (82.0-101.0); MEAN PLATELET VOLUME 11.4 fl (7.4-10.4); PLATELET COUNT 230 10^3/UL (140-415); POSITIVE DIFF @See below
[2018-04-15 05:33] LABS: ADD MAN DIFF? YES
[2018-04-15 05:53] LABS: IRON 13 ug/dl (35-150)
[2018-04-15 06:02] LABS: ANION GAP 13 (8-16); BLOOD UREA NITROGEN 21 mg/dl (7-20); CALCIUM 7.6 mg/dl (8.4-10.2); CARBON DIOXIDE 17 mmol/L (21-31); CHLORIDE 114 mmol/L (97-110); CREATININE 1.66 mg/dl (0.61-1.24); GLUCOSE 314 mg/dl (70-220); MAGNESIUM 2.4 mg/dl (1.7-2.5); PHOSPHORUS 6.4 mg/dl (2.5-4.9); POTASSIUM 3.9 mmol/L (3.5-5.1); SODIUM 140 mmol/L (135-144)
[2018-04-15 06:04] LABS: % IRON SATURATION 8 % SAT (22-52); TOTAL IRON BINDING CAPACITY 153 ug/dl (241-421)
[2018-04-15 07:08] LABS: ANISOCYTOSIS 1+ (0-0); BAND NEUTROPHILS % (M) 24 % (0-4); BURR CELLS 1+ (0-0); EOSINOPHILS % (M) 1 % (0-7); ERYTHROBLAST% (NRBC) (M) 1 % (0-0); LYMPHOCYTES #M 0.8 10^3/ul (0.8-2.9); LYMPHOCYTES % (M) 21 % (15-51); METAMYELOCYTES #M 0.1 10^3/ul (0.0-0.0); METAMYELOCYTES %M 3 % (0-0); MICROCYTOSIS 1+ (0-0); MONOCYTE #M 0.1 10^3/ul (0.3-0.9); MONOCYTES % (M) 4 % (0-11); MYELOCYTES % (M) 2 % (0-0); PLATELET ESTIMATE NORMAL; POIKILOCYTOSIS 2+ (0-0); SEG NEUT #M 1.9 10^3/ul (1.6-7.5); SEGMENTED NEUTROPHILS (M) % 45 % (39-77); SMUDGE%M 66 % (0-0)
[2018-04-15] MEDS: DOXYCYCLINE 100 MG in SOD CHLORIDE 0.9% 250 ML IVPB ×2 (09:16→20:53)
[2018-04-15] MEDS: MUPIROCIN 2% 22 GM OINT TOP ×2 (09:17→20:54)
[2018-04-15] MEDS: INSULIN GLARGINE [LANTus] (100 UNITS/ML) SYG SC (10:52)
[2018-04-15] MEDS: LORAZEPAM 2 MG INJ IV ×2 (13:19→17:15)
[2018-04-15] MEDS: CASPOFUNGIN 50 MG in SOD CHLORIDE 0.9% 250 ML IVPB (17:16)
[2018-04-15] MEDS: SOD FERRIC GLUC COMPLX 125 MG in SOD CHLORIDE 0.9% 100 ML IVPB (17:47)
[2018-04-16] MEDS: ONDANSETRON 4 MG INJ IV (00:53)
[2018-04-16] MEDS: INSULIN ASPART [NOVOLOG] 3 ML PEN SC ×6 (00:58→20:28)
[2018-04-16] MEDS: ALBUTEROL 0.083% (NEB) 2.5 MG/3 ML AMP NEB (04:48)
[2018-04-16] MEDS: PIPER-TAZO 3.375 GM IV (PMX) 100 ML IVPB ×3 (05:17→19:16)
[2018-04-16] MEDS: PANTOPRAZOLE 40 MG INJ IV (05:17)
[2018-04-16] MEDS: METHYLPREDNISOLONE 40 MG INJ IV ×3 (05:17→18:29)
[2018-04-16 05:22] LABS: HEMATOCRIT 24.1 % (42.0-52.0); HEMOGLOBIN 7.9 g/dl (14.0-18.0); MEAN CORPUSCULAR HEMOGLOBIN 28.2 pg (29.0-33.0); MEAN CORPUSCULAR HGB CONC 32.8 g/dl (32.0-37.0); MEAN CORPUSCULAR VOLUME 86.1 fl (82.0-101.0); MEAN PLATELET VOLUME 10.9 fl (7.4-10.4); NUCLEATED RED BLOOD CELLS% 0.3 /100WBC (0.0-0.0); PLATELET COUNT 291 10^3/UL (140-415); POSITIVE DIFF @See below; RED CELL DISTRIBUTION WIDTH 15.1 % (11.5-14.5)
[2018-04-16 05:22] LABS: WHITE BLOOD COUNT 9.8 10^3/ul (4.8-10.8)
[2018-04-16 05:44] LABS: ALANINE AMINOTRANSFERASE 17 IU/L (13-69); ALBUMIN 2.1 g/dl (3.3-4.9); ALBUMIN/GLOBULIN RATIO 0.77; ALKALINE PHOSPHATASE 144 IU/L (42-121); ANION GAP 11 (8-16); ASPARTATE AMINO TRANSFERASE 10 IU/L (15-46); BLOOD UREA NITROGEN 33 mg/dl (7-20); CARBON DIOXIDE 18 mmol/L (21-31); CHLORIDE 122 mmol/L (97-110); CREATININE 1.87 mg/dl (0.61-1.24); GLUCOSE 217 mg/dl (70-220); POTASSIUM 3.6 mmol/L (3.5-5.1); SODIUM 147 mmol/L (135-144); TOTAL PROTEIN 4.8 g/dl (6.1-8.1)
[2018-04-16 06:09] LABS: ADD MAN DIFF? YES
[2018-04-16] MEDS: LORAZEPAM 2 MG INJ IV (07:43)
[2018-04-16 07:51] LABS: BAND NEUTROPHILS #M 0.9 10^3/ul (0.0-0.6); BAND NEUTROPHILS % (M) 10 % (0-4); GIANT THROMBO% (M) 1 % (0-0); LYMPHOCYTES % (M) 21 % (15-51); METAMYELOCYTES %M 1 % (0-0); MONOCYTE #M 0.1 10^3/ul (0.3-0.9); MONOCYTES % (M) 2 % (0-11); PLATELET ESTIMATE NORMAL; SEG NEUT #M 6.6 10^3/ul (1.6-7.5); SEGMENTED NEUTROPHILS (M) % 66 % (39-77); SMUDGE%M 12 % (0-0)
[2018-04-16] MEDS: MUPIROCIN 2% 22 GM OINT TOP ×2 (08:57→20:28)
[2018-04-16] MEDS: DEXTROSE 5% 1,000 ML IV ×2 (08:57→15:57)
[2018-04-16] MEDS: POTASSIUM CHLORIDE 50 ML IVPB ×2 (08:57→14:00)
[2018-04-16] MEDS: DOXYCYCLINE 100 MG in SOD CHLORIDE 0.9% 250 ML IVPB ×2 (09:55→20:28)
[2018-04-16 10:04] LABS: HIV 1&2 ANTIBODY NEGATIVE (NEGATIVE)
[2018-04-16] MEDS: INSULIN GLARGINE [LANTus] (100 UNITS/ML) SYG SC ×2 (10:26→18:10)
[2018-04-16] MEDS: SOD FERRIC GLUC COMPLX 125 MG in SOD CHLORIDE 0.9% 100 ML IVPB (18:29)
[2018-04-16] MEDS: CASPOFUNGIN 50 MG in SOD CHLORIDE 0.9% 250 ML IVPB (20:26)
[2018-04-16] MEDS: EPOETIN 10000 UNITS/ML (NON ESRD/NON ONCOLOGY) SC (20:27)
[2018-04-17] MEDS: INSULIN ASPART [NOVOLOG] 3 ML PEN SC ×6 (01:00→20:45)
[2018-04-17] MEDS: DEXTROSE 50% 50 ML SYRINGE IV ×5 (01:57→21:56)
[2018-04-17] MEDS: PIPER-TAZO 3.375 GM IV (PMX) 100 ML IVPB ×4 (02:04→18:51)
[2018-04-17] MEDS: METHYLPREDNISOLONE 40 MG INJ IV ×2 (02:04→05:18)
[2018-04-17] MEDS: PANTOPRAZOLE 40 MG INJ IV (05:18)
[2018-04-17] MEDS: DEXTROSE 5% 1,000 ML IV ×3 (05:19→17:54)
[2018-04-17 06:24] LABS: ADD MAN DIFF? NO
[2018-04-17 06:31] LABS: LYMPHOCYTES # 1.5 10^3/ul (0.8-2.9); MEAN CORPUSCULAR HEMOGLOBIN 27.5 pg (29.0-33.0); MEAN CORPUSCULAR HGB CONC 31.8 g/dl (32.0-37.0); MEAN CORPUSCULAR VOLUME 86.3 fl (82.0-101.0); MEAN PLATELET VOLUME 10.9 fl (7.4-10.4); MONOCYTE # 0.5 10^3/ul (0.3-0.9); MONOCYTES % 6.6 % (0.0-11.0); NEUTROPHIL # 5.7 10^3/ul (1.6-7.5); NUCLEATED RED BLOOD CELLS% 0.5 /100WBC (0.0-0.0); PLATELET COUNT 292 10^3/UL (140-415); RED BLOOD COUNT 2.55 10^6/ul (4.70-6.10); RED CELL DISTRIBUTION WIDTH 15.1 % (11.5-14.5)
[2018-04-17 06:31] LABS: WHITE BLOOD COUNT 8.1 10^3/ul (4.8-10.8)
[2018-04-17 07:31] LABS: ANION GAP 7 (8-16); BLOOD UREA NITROGEN 34 mg/dl (7-20); CALCIUM 7.9 mg/dl (8.4-10.2); CARBON DIOXIDE 19 mmol/L (21-31); CHLORIDE 124 mmol/L (97-110); CREATININE 1.61 mg/dl (0.61-1.24); GLUCOSE 109 mg/dl (70-220); POTASSIUM 3.2 mmol/L (3.5-5.1); SODIUM 147 mmol/L (135-144)
[2018-04-17] MEDS: DOXYCYCLINE 100 MG in SOD CHLORIDE 0.9% 250 ML IVPB ×2 (08:25→20:42)
[2018-04-17] MEDS: LORAZEPAM 2 MG INJ IV ×2 (08:26→21:09)
[2018-04-17] MEDS: MUPIROCIN 2% 22 GM OINT TOP ×2 (08:26→20:43)
[2018-04-17] MEDS: INSULIN GLARGINE [LANTus] (100 UNITS/ML) SYG SC (08:32)
[2018-04-17] MEDS: THIAMINE 100 MG TAB PO (10:55)
[2018-04-17] MEDS: POTASSIUM CHLORIDE 100 ML IVPB ×2 (12:14→14:25)
[2018-04-17] MEDS: CHLORDIAZEPOXIDE 5 MG CAP PO ×2 (12:21→20:48)
[2018-04-17] MEDS: CASPOFUNGIN 50 MG in SOD CHLORIDE 0.9% 250 ML IVPB (17:50)
[2018-04-17] MEDS: SOD FERRIC GLUC COMPLX 125 MG in SOD CHLORIDE 0.9% 100 ML IVPB (19:56)
[2018-04-17] MEDS: ALTEPLASE (CATHFLO) 2 MG INJ CATHETER ×3 (22:29→22:30)
[2018-04-18] MEDS: DEXTROSE 50% 50 ML SYRINGE IV ×5 (00:47→21:08)
[2018-04-18] MEDS: PIPER-TAZO 3.375 GM IV (PMX) 100 ML IVPB ×4 (00:56→18:17)
[2018-04-18] MEDS: INSULIN ASPART [NOVOLOG] 3 ML PEN SC ×6 (00:56→21:00)
[2018-04-18] MEDS: PANTOPRAZOLE 40 MG INJ IV (05:48)
[2018-04-18] MEDS: DEXTROSE 5% 1,000 ML IV ×2 (06:16→14:55)
[2018-04-18 06:38] LABS: ADD MAN DIFF? NO
[2018-04-18 06:46] LABS: BASOPHILS % 0.1 % (0.0-2.0); EOSINOPHILS # 0.1 10^3/ul (0.0-0.5); EOSINOPHILS % 0.7 % (0.0-7.0); HEMATOCRIT 22.4 % (42.0-52.0); HEMOGLOBIN 7.3 g/dl (14.0-18.0); LYMPHOCYTES # 3.3 10^3/ul (0.8-2.9); LYMPHOCYTES % 37.1 % (15.0-51.0); MEAN CORPUSCULAR HEMOGLOBIN 28.4 pg (29.0-33.0); MEAN CORPUSCULAR HGB CONC 32.6 g/dl (32.0-37.0); MEAN CORPUSCULAR VOLUME 87.2 fl (82.0-101.0); MEAN PLATELET VOLUME 10.5 fl (7.4-10.4); MONOCYTE # 1.1 10^3/ul (0.3-0.9); MONOCYTES % 11.7 % (0.0-11.0); NEUTROPHIL # 4.4 10^3/ul (1.6-7.5); NEUTROPHILS % 48.5 % (39.0-77.0); NUCLEATED RED BLOOD CELLS% 0.4 /100WBC (0.0-0.0); PLATELET COUNT 321 10^3/UL (140-415); RED BLOOD COUNT 2.57 10^6/ul (4.70-6.10); RED CELL DISTRIBUTION WIDTH 14.9 % (11.5-14.5)
[2018-04-18 07:07] LABS: CREATININE,URINE RANDOM 13.36 mg/dl (20-370); PROTEIN/CREAT RATIO 1.64 RATIO
[2018-04-18 07:35] LABS: ANION GAP 7 (8-16); BLOOD UREA NITROGEN 22 mg/dl (7-20); CALCIUM 7.7 mg/dl (8.4-10.2); CARBON DIOXIDE 21 mmol/L (21-31); CHLORIDE 120 mmol/L (97-110); CREATININE 1.27 mg/dl (0.61-1.24); GLUCOSE 72 mg/dl (70-220); SODIUM 145 mmol/L (135-144)
[2018-04-18 07:41] LABS: POTASSIUM 2.6 mmol/L (3.5-5.1)
[2018-04-18] MEDS: INSULIN GLARGINE [LANTus] (100 UNITS/ML) SYG SC (08:00)
[2018-04-18] MEDS: CHLORDIAZEPOXIDE 5 MG CAP PO ×3 (09:00→20:35)
[2018-04-18] MEDS: DOXYCYCLINE 100 MG in SOD CHLORIDE 0.9% 250 ML IVPB ×2 (09:36→20:55)
[2018-04-18] MEDS: MUPIROCIN 2% 22 GM OINT TOP ×2 (10:00→21:02)
[2018-04-18] MEDS: POTASSIUM CHLORIDE 100 ML IVPB ×4 (10:01→16:54)
[2018-04-18] MEDS: SOD FERRIC GLUC COMPLX 125 MG in SOD CHLORIDE 0.9% 100 ML IVPB (16:53)
[2018-04-18] MEDS: CASPOFUNGIN 50 MG in SOD CHLORIDE 0.9% 250 ML IVPB (19:05)
[2018-04-18] MEDS ORDERED: SOD CHLORIDE 0.45% 1,000 ML IV (21:30)
[2018-04-19] MEDS: SODIUM CHLORIDE 23.4% 77 MEQ in DEXTROSE 10% 1,000 ML IV ×2 (00:13→16:45)
[2018-04-19] MEDS: PIPER-TAZO 3.375 GM IV (PMX) 100 ML IVPB ×3 (00:13→12:44)
[2018-04-19] MEDS: DEXTROSE 50% 50 ML SYRINGE IV ×3 (00:51→08:46)
[2018-04-19] MEDS: INSULIN ASPART [NOVOLOG] 3 ML PEN SC ×3 (01:00→08:21)
[2018-04-19] MEDS: PANTOPRAZOLE 40 MG INJ IV (05:14)
[2018-04-19 05:52] LABS: ADD MAN DIFF? NO
[2018-04-19 05:56] LABS: BASOPHILS % 0.1 % (0.0-2.0); EOSINOPHILS # 0.2 10^3/ul (0.0-0.5); EOSINOPHILS % 2.3 % (0.0-7.0); HEMATOCRIT 24.8 % (42.0-52.0); HEMOGLOBIN 8.1 g/dl (14.0-18.0); LYMPHOCYTES # 3.2 10^3/ul (0.8-2.9); MEAN CORPUSCULAR HEMOGLOBIN 27.9 pg (29.0-33.0); MEAN CORPUSCULAR HGB CONC 32.7 g/dl (32.0-37.0); MEAN CORPUSCULAR VOLUME 85.5 fl (82.0-101.0); MEAN PLATELET VOLUME 11.2 fl (7.4-10.4); MONOCYTE # 0.6 10^3/ul (0.3-0.9); MONOCYTES % 7.5 % (0.0-11.0); NEUTROPHIL # 3.5 10^3/ul (1.6-7.5); NEUTROPHILS % 45.4 % (39.0-77.0); NUCLEATED RED BLOOD CELLS # 0.1 10^3/ul (0.0-0.0); NUCLEATED RED BLOOD CELLS% 0.8 /100WBC (0.0-0.0); PLATELET COUNT 328 10^3/UL (140-415); RED CELL DISTRIBUTION WIDTH 14.2 % (11.5-14.5)
[2018-04-19 05:56] LABS: WHITE BLOOD COUNT 7.7 10^3/ul (4.8-10.8)
[2018-04-19 06:12] LABS: ANION GAP 8 (8-16); BLOOD UREA NITROGEN 13 mg/dl (7-20); CALCIUM 7.3 mg/dl (8.4-10.2); CARBON DIOXIDE 21 mmol/L (21-31); CHLORIDE 114 mmol/L (97-110); CREATININE 0.99 mg/dl (0.61-1.24); SODIUM 140 mmol/L (135-144)
[2018-04-19] MEDS: ALTEPLASE (CATHFLO) 2 MG INJ CATHETER (06:21)
[2018-04-19 06:45] LABS: POTASSIUM 2.8 mmol/L (3.5-5.1)
[2018-04-19 06:48] LABS: GLUCOSE 42 mg/dl (70-220)
[2018-04-19] MEDS: INSULIN GLARGINE [LANTus] (100 UNITS/ML) SYG SC (08:00)
[2018-04-19] MEDS: POTASSIUM CHLORIDE 100 ML IVPB ×3 (08:40→11:30)
[2018-04-19] MEDS: DOXYCYCLINE 100 MG in SOD CHLORIDE 0.9% 250 ML IVPB (08:42)
[2018-04-19] MEDS: CHLORDIAZEPOXIDE 5 MG CAP PO ×3 (09:00→21:02)
[2018-04-19] MEDS: MUPIROCIN 2% 22 GM OINT TOP ×2 (09:13→20:58)
[2018-04-19 13:59] LABS: ANION GAP 7 (8-16); BLOOD UREA NITROGEN 10 mg/dl (7-20); CALCIUM 7.2 mg/dl (8.4-10.2); CARBON DIOXIDE 21 mmol/L (21-31); CHLORIDE 113 mmol/L (97-110); CREATININE 0.98 mg/dl (0.61-1.24); GLUCOSE 101 mg/dl (70-220); POTASSIUM 3.3 mmol/L (3.5-5.1); SODIUM 138 mmol/L (135-144)
[2018-04-19] MEDS: POTASSIUM CHLORIDE (SR) 20 MEQ TAB PO (16:34)
[2018-04-19] MEDS: CASPOFUNGIN 50 MG in SOD CHLORIDE 0.9% 250 ML IVPB (17:00)
[2018-04-19] MEDS: SOD FERRIC GLUC COMPLX 125 MG in SOD CHLORIDE 0.9% 100 ML IVPB (17:49)
[2018-04-19] MEDS: EPOETIN 10000 UNITS/ML (NON ESRD/NON ONCOLOGY) SC (17:53)
[2018-04-19] MEDS: AMPICILLIN 1 GM/NS (PMX) 50 ML IVPB (21:04)
[2018-04-20] MEDS: AMPICILLIN 1 GM/NS (PMX) 50 ML IVPB ×3 (05:55→21:02)
[2018-04-20] MEDS: PANTOPRAZOLE 40 MG INJ IV (05:56)
[2018-04-20] MEDS: CHLORDIAZEPOXIDE 5 MG CAP PO ×2 (08:05→13:35)
[2018-04-20] MEDS: MUPIROCIN 2% 22 GM OINT TOP ×2 (08:06→21:02)
[2018-04-20 13:39] LABS: ANION GAP 10 (8-16); BLOOD UREA NITROGEN 16 mg/dl (7-20); CALCIUM 6.8 mg/dl (8.4-10.2); CARBON DIOXIDE 20 mmol/L (21-31); CHLORIDE 105 mmol/L (97-110); CREATININE 0.97 mg/dl (0.61-1.24); GLUCOSE 282 mg/dl (70-220); POTASSIUM 3.5 mmol/L (3.5-5.1); SODIUM 131 mmol/L (135-144)
[2018-04-20] MEDS: SODIUM CHLORIDE 23.4% 77 MEQ in DEXTROSE 10% 1,000 ML IV (14:05)
[2018-04-20] MEDS: CASPOFUNGIN 50 MG in SOD CHLORIDE 0.9% 250 ML IVPB (17:22)
[2018-04-20] MEDS: ALTEPLASE (CATHFLO) 2 MG INJ CATHETER (17:29)
[2018-04-20] MEDS: INSULIN ASPART [NOVOLOG] 3 ML PEN SC ×3 (17:43→21:00)
[2018-04-20] MEDS: PANTOPRAZOLE (EC) 40 MG TAB PO (18:08)
[2018-04-20] MEDS: INSULIN GLARGINE [LANTus] (100 UNITS/ML) SYG SC (20:58)
[2018-04-21] MEDS: AMPICILLIN 1 GM/NS (PMX) 50 ML IVPB ×3 (05:56→21:40)
[2018-04-21] MEDS: PANTOPRAZOLE (EC) 40 MG TAB PO ×2 (05:56→17:59)
[2018-04-21] MEDS: INSULIN ASPART [NOVOLOG] 3 ML PEN SC ×7 (08:00→20:59)
[2018-04-21] MEDS: MUPIROCIN 2% 22 GM OINT TOP ×2 (08:26→20:57)
[2018-04-21] MEDS ORDERED: GUAIFENESIN/DM 5ML CUP PO (10:00)
[2018-04-21] MEDS: CASPOFUNGIN 50 MG in SOD CHLORIDE 0.9% 250 ML IVPB (17:58)
[2018-04-21] MEDS: GUAIFENESIN/DM (SR) TAB PO (20:57)
[2018-04-21] MEDS: INSULIN GLARGINE [LANTus] (100 UNITS/ML) SYG SC (21:00)
[2018-04-22] MEDS: AMPICILLIN 1 GM/NS (PMX) 50 ML IVPB ×3 (06:23→21:03)
[2018-04-22] MEDS: PANTOPRAZOLE (EC) 40 MG TAB PO ×2 (06:24→17:40)
[2018-04-22] MEDS: INSULIN ASPART [NOVOLOG] 3 ML PEN SC ×7 (08:00→20:45)
[2018-04-22 08:38] LABS: ABNORMAL IP MESSAGE 1; HEMATOCRIT 22.4 % (42.0-52.0); HEMOGLOBIN 7.6 g/dl (14.0-18.0); MEAN CORPUSCULAR HEMOGLOBIN 28.7 pg (29.0-33.0); MEAN CORPUSCULAR HGB CONC 33.9 g/dl (32.0-37.0); MEAN CORPUSCULAR VOLUME 84.5 fl (82.0-101.0); MEAN PLATELET VOLUME 10.6 fl (7.4-10.4); PLATELET COUNT 412 10^3/UL (140-415); POSITIVE DIFF @See below; RED BLOOD COUNT 2.65 10^6/ul (4.70-6.10); RED CELL DISTRIBUTION WIDTH 13.7 % (11.5-14.5)
[2018-04-22 08:38] LABS: WHITE BLOOD COUNT 9.9 10^3/ul (4.8-10.8)
[2018-04-22 09:04] LABS: ADD MAN DIFF? YES
[2018-04-22] MEDS: MUPIROCIN 2% 22 GM OINT TOP ×2 (09:21→20:45)
[2018-04-22] MEDS: GUAIFENESIN/DM (SR) TAB PO ×2 (09:28→20:38)
[2018-04-22 10:35] LABS: ANISOCYTOSIS 1+ (0-0); BAND NEUTROPHILS #M 0.2 10^3/ul (0.0-0.6); BAND NEUTROPHILS % (M) 3 % (0-4); BASOPHIL #M 0.1 10^3/ul (0.0-0.0); BASOPHILS % (M) 2 % (0-2); BURR CELLS 1+ (0-0); EOSINOPHILS % (M) 7 % (0-7); ERYTHROBLAST% (NRBC) (M) 2 % (0-0); GIANT THROMBO% (M) 4 % (0-0); LYMPHOCYTES #M 2.7 10^3/ul (0.8-2.9); LYMPHOCYTES % (M) 28 % (15-51); MONOCYTE #M 0.7 10^3/ul (0.3-0.9); MONOCYTES % (M) 8 % (0-11); MYELOCYTES #M 0.2 10^3/ul (0.0-0.0); MYELOCYTES % (M) 3 % (0-0); PLATELET ESTIMATE NORMAL; POIKILOCYTOSIS 1+ (0-0); PROMYELOCYTES #M 0.1 10^3/ul (0-0); PROMYELOCYTES % (M) 2 % (0-0); SEG NEUT #M 4.7 10^3/ul (1.6-7.5); SEGMENTED NEUTROPHILS (M) % 47 % (39-77); SMUDGE%M 6 % (0-0)
[2018-04-22] MEDS: CASPOFUNGIN 50 MG in SOD CHLORIDE 0.9% 250 ML IVPB (17:40)
[2018-04-22] MEDS ORDERED: DIPHENOXYLATE/ATROPINE TAB PO (19:00)
[2018-04-22] MEDS: INSULIN GLARGINE [LANTus] (100 UNITS/ML) SYG SC (20:44)
[2018-04-23] MEDS: ONDANSETRON 4 MG INJ IV (02:16)
[2018-04-23] MEDS: PANTOPRAZOLE (EC) 40 MG TAB PO (05:31)
[2018-04-23] MEDS: AMPICILLIN 1 GM/NS (PMX) 50 ML IVPB ×2 (05:31→13:10)
[2018-04-23 07:22] LABS: WHITE BLOOD COUNT 8.8 10^3/ul (4.8-10.8)
[2018-04-23 07:22] LABS: ABNORMAL IP MESSAGE 1; HEMATOCRIT 20.9 % (42.0-52.0); MEAN CORPUSCULAR HEMOGLOBIN 28.8 pg (29.0-33.0); MEAN CORPUSCULAR VOLUME 87.1 fl (82.0-101.0); MEAN PLATELET VOLUME 11.2 fl (7.4-10.4); PLATELET COUNT 409 10^3/UL (140-415); POSITIVE DIFF @See below; RED CELL DISTRIBUTION WIDTH 14.6 % (11.5-14.5)
[2018-04-23 07:34] LABS: ADD MAN DIFF? NO; HEMOGLOBIN 6.9 g/dl (14.0-18.0); PATH REVIEW? YES
[2018-04-23 07:44] LABS: ANION GAP 11 (8-16); BLOOD UREA NITROGEN 13 mg/dl (7-20); CARBON DIOXIDE 22 mmol/L (21-31); CHLORIDE 109 mmol/L (97-110); GLUCOSE 228 mg/dl (70-220); POTASSIUM 3.5 mmol/L (3.5-5.1); SODIUM 138 mmol/L (135-144)
[2018-04-23] MEDS: BARIUM SULFATE 135 ML (E-Z HD) PO (08:54)
[2018-04-23] MEDS: MUPIROCIN 2% 22 GM OINT TOP (08:55)
[2018-04-23] MEDS: GUAIFENESIN/DM (SR) TAB PO (08:55)
[2018-04-23 09:10] LABS: ANISOCYTOSIS 1+ (0-0); BAND NEUTROPHILS #M 0.4 10^3/ul (0.0-0.6); BAND NEUTROPHILS % (M) 5 % (0-4); EOSINOPHILS % (M) 1 % (0-7); LYMPHOCYTES #M 2.9 10^3/ul (0.8-2.9); LYMPHOCYTES % (M) 33 % (15-51); MICROCYTOSIS 1+ (0-0); MONOCYTE #M 0.3 10^3/ul (0.3-0.9); MONOCYTES % (M) 4 % (0-11); MYELOCYTES #M 0.5 10^3/ul (0.0-0.0); MYELOCYTES % (M) 6 % (0-0); PLATELET ESTIMATE NORMAL; POLYCHROMASIA 3+ (0-0); SEG NEUT #M 4.5 10^3/ul (1.6-7.5); SEGMENTED NEUTROPHILS (M) % 51 % (39-77); SMUDGE%M 4 % (0-0)
[2018-04-23] MEDS: INSULIN ASPART [NOVOLOG] 3 ML PEN SC ×4 (12:41→14:29)
[2018-04-25 14:07] LABS: C-PEPTIDE <0.10 ng/mL (0.80-3.85)
[2018-04-26 23:07] LABS: ISLET CELL ANTIBODY SCREEN NEGATIVE (NEGATIVE)
[2018-04-27 23:37] LABS: GAD 65 ANTIBODY 74 IU/mL (<5)
[2018-04-29 17:32] LABS: INSULIN AUTOANTIBODY <0.4 U/mL (<0.4)
== END 2018-04-23 17:40 | disposition home or self-care (01) | DRG 870 ==
LOC: 6WM 04-16 13:48 → E/R 13:56 → 2NE 04-17 15:01 → ICU 15:41 → 2NE 04-17 15:18
PROC: 0DJ08ZZ Inspection of Upper Intestinal Tract, Via Natural or Artificial Opening Endoscopic (ICD-10-PCS; 2018-04-12 13:00)
PROC: 02HV33Z Insertion of Infusion Device into Superior Vena Cava, Percutaneous Approach (ICD-10-PCS; principal; 2018-04-12 13:25)
PROC: 5A1955Z Respiratory Ventilation, Greater than 96 Consecutive Hours (ICD-10-PCS; 2018-04-12 13:25)
PROC: 0BH18EZ Insertion of Endotracheal Airway into Trachea, Via Natural or Artificial Opening Endoscopic (ICD-10-PCS; 2018-04-12 13:25)
PROC: 06HY33Z Insertion of Infusion Device into Lower Vein, Percutaneous Approach (ICD-10-PCS; 2018-04-12 13:25)
DX: A41.81 Sepsis due to Enterococcus (principal); E10.10 Type 1 diabetes mellitus with ketoacidosis without coma; R65.21 Severe sepsis with septic shock; J18.9 Pneumonia, unspecified organism; J96.01 Acute respiratory failure with hypoxia; G93.41 Metabolic encephalopathy; I21.A1 Myocardial infarction type 2; D62 Acute posthemorrhagic anemia; E87.0 Hyperosmolality and hypernatremia; K92.1 Melena; E87.1 Hypo-osmolality and hyponatremia; E44.0 Moderate protein-calorie malnutrition; Z68.1 Body mass index [BMI] 19.9 or less, adult; N17.9 Acute kidney failure, unspecified; B37.7 Candidal sepsis; E87.5 Hyperkalemia; K20.9 Esophagitis, unspecified; K29.70 Gastritis, unspecified, without bleeding; K26.9 Duodenal ulcer, unspecified as acute or chronic, without hemorrhage or perforation; E87.6 Hypokalemia; E10.649 Type 1 diabetes mellitus with hypoglycemia without coma; Z22.322 Carrier or suspected carrier of Methicillin resistant Staphylococcus aureus; F15.90 Other stimulant use, unspecified, uncomplicated
CPT/HCPCS: 31500; 36415; 36430; 36569; 36600; 70450; 71045; 74230; 76775; 76937; 80048; 80053; 80069; 80202; 80307; 81001; 81003; 82270; 82550; 82553; 82570; 82728; 82803; 82947; 82962; 83036; 83540; 83605; 83735; 84100; 84300; 84484; 84681; 85025; 85610; 85730; 86337; 86341; 86644; 86703; 86850; 86900; 86901; 86920; 87040; 87070; 87081; 87086; 92526; 92610; 92611; 93005; 93306; 94002; 94003; 94660; 94664; 94770; 95819; 96361; 96365; 96375; 97116; 97161; 97530; 99291-25